=== PATIENT | male | born 1995 | race Caucasian/White ===

== ENCOUNTER 2017-05-18 16:51 | Emergency (ER) | payer MEDICAID, OTHER ==
[~2017-05-18] VITALS: Ht 177.8 cm; Wt 77.0 kg
[2017-05-18 16:53] VITALS: Ht 177.8 cm; Wt 77.0 kg
--- NOTE | 2017-05-18 17:49 | ERD ---
ER Documentation Chief Complaint Chief Complaint COUGH WEAK AND A HALF WITH FEVER HPI 22-year-old male presents emergency department with a cough that has been productive for a week and a half. Patient states he has had yellow to greenish colored sputum, fever up to 102 that occurred 3 days ago. Patient has not had any history of apnea, cyanosis, shortness of breath. He states that he has never been told he has asthma and he is a non-smoker. ROS All systems reviewed and are negative except as per history of present illness. Medications Home Meds Active Scripts Xwsohorfsjy-P-Vusbfxqnrm Hb* (Guaifenesin* DM Syrup) 120 Ml Syrup, 10 ML PO Q4H Y for COUGH, #4 OZ Prov:TESSA HELTON PA-C 05/18/17 Benzonatate* (Tessalon Perle*) 100 Mg Capsule, 100 MG PO Q8H Y for COUGH, #30 CAP Prov:TESSA HELTON PA-C 05/18/17 Azithromycin* (Zithromax*) 250 Mg Tablet, 250 MG PO .ZPACK DIRECTED, #6 TAB TAKE 500 MG (2 TABS) THE FIRST DAY THEN 250 MG (1 TAB) DAYS 2-5 Prov:TESSA HELTON PA-C 05/18/17 Physical Exam Vitals Vital Signs Date Time Temp Pulse Resp B/P Pulse Ox O2 Delivery O2 Flow Rate FiO2 05/18/17 16:53 97.8 71 18 118/64 98 Physical Exam General: Well-developed, well-nourished. The patient appears in no acute distress. HEENT: Head is normocephalic, atraumatic. No scleral icterus. Pupils are equal , round, and reactive. Oral mucous membranes are moist. No pharyngeal erythema. Neck: Supple. Nontender. Lungs: Rhonchi bilaterally upon auscultation, there is no wheezing, nonlabored. Heart: Regular rate and rhythm. S1 and S2 are normal. No murmurs, gallops, or rubs. Abdomen: Soft, nontender, nondistended. Bowel sounds are normoactive. Extremities: No clubbing or cyanosis. Normal pulses. Moving extremities x 4. No weakness. Neurologic: Alert and oriented 3. No focal deficits. Skin: Normal turgor. No rash or lesions. Results 24 hrs DIAGNOSTIC IMAGING REPORT Patient: LEW DOS SANTOS : 1995 Age: 22 Sex: M MR #: [id number] DOS: 05/18/17 1718 Ordering MD: TESSA HELTON PA-C Location: [facility] Room/Bed: PROCEDURE: PA chest x-ray. CLINICAL INDICATION: Cough for 10 days. TECHNIQUE: PA view of the chest. COMPARISON: None. FINDINGS: There are mildly prominent perihilar lung markings. No pulmonary consolidation is identified. The cardiothymic silhouette is not enlarged. No pleural effusion is seen. There is no pneumothorax. IMPRESSION: 1. Mildly prominent perihilar lung markings, possibly representing a viral chest infection. 2. No pulmonary consolidation. RPTAT: HTAR .Don Martinez MD, Date Time Electronically viewed and signed by .Don Martinez MD, on 05/18/2017 18:36 .R/ CC: TESSA HELTON PA-C Procedures/MDM 19-year-old male presents emergency department URI symptoms, he had a rhonchorous cough, and chest x-ray shows likely viral pattern however patient be treated for acute bronchitis based on the clinical presentation. His history of also includes fever. He was given Zithromax, guaifenesin cough syrup and Tessalon Perles. No evidence of pneumonia, hypoxia or respiratory distress. Departure Diagnosis: Primary Impression: Cough Condition: Good TESSA HELTON PA-C May 18, 2017 17:49
--- NOTE | 2017-05-18 18:36 | RADRPT ---
PROCEDURE: PA chest x-ray. CLINICAL INDICATION: Cough for 10 days. TECHNIQUE: PA view of the chest. COMPARISON: None. FINDINGS: There are mildly prominent perihilar lung markings. No pulmonary consolidation is identified. The ca rdiothymic silhouette is not enlarged. No pleural effusion is seen. There is no pneumothorax. IMPRESSION: 1. Mildly prominent perihilar lung markings, possibly representing a viral chest infection. 2. No pulmonary consolidation. RPTAT: HTAR .Don Martinez MD, MD Date Time Electronically viewed and signed by .Don Martinez MD, on 05/18/2017 18:36 .R/
[2017-05-18] MEDS ORDERED: AZIT250T94 PO (19:05)
[2017-05-18] MEDS ORDERED: GUAI120S26 PO (19:24)
[2017-05-18] MEDS ORDERED: BENZ100C70 PO (19:24)
[2017-05-18 19:27] VITALS: BP 117/65; PULSE 68; RESP 18; TEMP 97.8
== END 2017-05-18 19:27 | disposition home or self-care (01) ==
LOC: FTE 16:51
DX: S00.93XA Contusion of unspecified part of head, initial encounter (principal); W22.8XXA Striking against or struck by other objects, initial encounter; Y92.219 Unspecified school as the place of occurrence of the external cause
CPT/HCPCS: 71010; Z7502; 99283